=== PATIENT | male | born 1950 | race Caucasian/White ===

== ENCOUNTER 2021-12-07 08:18 | Day surgery (SDC) | payer MEDICARE, OTHER ==
[~2021-12-07] VITALS: Ht 182.9 cm; Wt 103.4 kg
[~2021-12-07 08:18] MED LIST: CRUTCH3 USE; NAPR220 PO; NAPR550 PO; OXYACE5T PO; RXNAPNA550 PO
[2021-12-07] MEDS ORDERED: Propecia1 MG (08:33)
[2021-12-07] MEDS ORDERED: TOPI15C (08:34)
[2021-12-07] MEDS ORDERED: GABA100 (08:37)
--- NOTE | 2021-12-07 08:48 | NUR ---
12/07/21 0848 Itzel Doty TWO ATTEMPTS AT IV. FIRSTY ATTEMPT AT IV IN RIGHT HAND BY MA UNABLE TO ADVANCE. SECOND ATTEMPT AT IV BY MA IN RIGHT AC SUCCESSFUL.
== END 2021-12-07 09:37 | disposition home or self-care (01) ==
LOC: ORSCSDS 08:18
PROVIDERS: Surgery
PROC: 0DBK8ZX Excision of Ascending Colon, Via Natural or Artificial Opening Endoscopic, Diagnostic (ICD-10-PCS; principal; 2021-12-07 09:30)
DX: Z12.11 Encounter for screening for malignant neoplasm of colon (principal); D12.2 Benign neoplasm of ascending colon; Z86.73 Personal history of transient ischemic attack (TIA), and cerebral infarction without residual deficits; I95.9 Hypotension, unspecified; R25.1 Tremor, unspecified; Z79.82 Long term (current) use of aspirin; Z79.899 Other long term (current) drug therapy
CPT/HCPCS: 88305; J2704; J7120

== ENCOUNTER → 2023-06-06 | Outpatient (CLI) | payer MEDICARE, OTHER ==
[~2023-06-06] MED LIST changes: +GABA100; +Propecia1 MG; +TOPI15C
[2023-06-06 19:02] LABS: BASOPHILS ABSOLUTE AUTO 0.05 K/mm3 (0.00-0.23); BASOPHILS PERCENT AUTO 1 % (0-2); EOSINOPHILS ABSOLUTE AUTO 0.16 K/mm3 (0.00-0.68); EOSINOPHILS PERCENT AUTO 2 % (0-6); Hemoglobin 14.3 g/dL (13.5-17.5); IMMATURE GRAN ABSOLUTE AUTO 0.03 K/mm3 (0.00-0.10); IMMATURE GRAN PERCENT AUTO 0 % (0-1); LYMPHOCYTES ABSOLUTE AUTO 1.58 K/mm3 (0.84-5.20); LYMPHOCYTES PERCENT AUTO 20 % (21-46); MONOCYTES ABSOLUTE AUTO 0.66 K/mm3 (0.16-1.47); MONOCYTES PERCENT AUTO 8 % (4-13); Mean Corpuscular HGB 30.8 pg (26.0-34.0); Mean Corpuscular Volume 91 fL (80-100); Mean Platelet Volume 9.6 fL (9.1-12.4); NEUTROPHILS ABSOLUTE AUTO 5.35 K/mm3 (1.96-9.15); NEUTROPHILS PERCENT AUTO 68 % (41-73); Platelet Count 216 K/mm3 (150-400); RDW Standard Deviation 45.5 fL (35.1-46.3); Red Blood Cell Count 4.64 M/mm3 (4.30-5.90); White Blood Cell Count 7.83 K/mm3 (4.00-11.30)
[2023-06-06 19:10] LABS: Albumin/Globulin Ratio 1.3 (0.8-1.8); Bilirubin, Total 0.5 mg/dL (0.1-1.0); Bun/Creatinine Ratio 25.6 (12.0-20.0); Calcium, Blood 8.8 mg/dL (8.5-10.1); Creatinine, Blood 1.33 mg/dL (0.60-1.20); Globulin, Blood 3.2 g/dL (2.2-4.0); Potassium, Blood 4.1 mmol/L (3.5-5.5); Total Protein, Blood 7.2 g/dL (6.4-8.2)
== END ==
LOC: LAB 18:55 → LAB SHORT 18:55
PROVIDERS: Family Medicine
DX: I77.6 Arteritis, unspecified (principal); M25.50 Pain in unspecified joint
CPT/HCPCS: 80053; 85025; 85651; 86140

== ENCOUNTER → 2024-02-12 | Outpatient (CLI) | payer MEDICARE, OTHER | LOC: LAB SHORT 17:35 → LAB 17:35 | DX: R31.9 Hematuria, unspecified (principal) | CPT/HCPCS: 87086 ==

== ENCOUNTER → 2024-06-10 | Outpatient (CLI) | payer MEDICARE, OTHER | LOC: LAB SHORT 18:04 → LAB 18:04 | DX: L98.9 Disorder of the skin and subcutaneous tissue, unspecified (principal) | CPT/HCPCS: 87070; 87205 ==